=== PATIENT | male | born 1960 | race Caucasian/White ===

== ENCOUNTER 2017-07-18 15:17 | Emergency (ER) | payer BC, OTHER ==
[~2017-07-18] VITALS: Ht 180.3 cm; Wt 85.9 kg
[~2017-07-18 15:17] MED LIST: FLV1 PO; LSN20 PO; MULT-589 PO; NRV5 PO; PLV75 PO; THM100 PO
[2017-07-18 15:21] VITALS: TEMP 36.7; Ht 180.3 cm; Wt 85.9 kg
[2017-07-18] MEDS ORDERED: ASPIRIN 81 MG CHEW PO STA (15:35)
[2017-07-18 15:45] VITALS: O2SAT 95
--- NOTE | 2017-07-18 15:58 | EMERGENCY ROOM VISIT NOTE ---
History Report prepared by Elsa: Naida Mace Under the Supervision of: Dr. Urban Jones M.D. First contact with patient: 15:23 Chief Complaint: SHORTNESS OF BREATH Stated Complaint: FEELING SHORT OF BREATH History of Present Illness The patient is a 56 year old male who presents to the Emergency Room with complaints of an episode of shortness of breath with exertion beginning this morning. The patient states he normally walks a mile every morning. He reports when he went to walk this morning he had to stop because he was so short of breath. He states his shortness of breath resolved when he rested. The patient notes a clear productive cough but denies any chest pain. Presently, he denies any shortness of breath or chest pain. The patient has a history of bronchiospasm and states his symptoms today feel similar to when he had it. The patient has a history of a mini stroke two years ago, hypertension, and high cholesterol. He denies any recent travel. The patient is a former smoker. The patient is on a blood thinner. Source of History: patient Onset: this morning Position: other (generalized) Quality: other (shortness of breath) Timing: other (episode) Modifying Factors (Worsening): exertion Associated Symptoms: + SOB, No chest pain Review of Systems See HPI for pertinent positives and negatives. A total of ten systems were reviewed and were otherwise negative. Past Medical & Surgical Medical Problems: (1) CVA (cerebral vascular accident) (2) Hypertension (3) Hyponatremia Family History No pertinent family history Social History Smoking Status: Former Smoker Alcohol Use: heavy Drug Use: none Marital Status: Housing Status: lives with family Occupation Status: employed Current/Historical Medications Scheduled Amlodipine Besylate (Norvasc), 10 MG PO QAM Atorvastatin (Lipitor), 40 MG PO QPM Clopidogrel Bisulfate (Plavix), 75 MG PO QAM Folic Acid (Folvite), 1 MG PO QAM Lisinopril (Zestril), 40 MG PO QAM Metoprolol Succ (Toprol Xl) (Toprol-Xl), 50 MG PO QAM Thiamine Hcl (Vitamin B-1), 100 MG PO QAM Scheduled PRN Albuterol (Ventolin Hfa), 2 PUFFS INH QID PRN for Shortness of Breath Allergies Coded Allergies: No Known Allergies (Unverified , 02/01/16) Physical Exam Vital Signs Date Time Temp Pulse Resp B/P (MAP) Pulse Ox O2 Delivery O2 Flow Rate FiO2 07/18/17 19:59 78 20 163/101 98 Room Air 07/18/17 19:20 70 20 158/99 98 Room Air 07/18/17 18:14 73 15 154/86 95 Room Air 07/18/17 17:13 95 07/18/17 16:51 71 155/90 95 Room Air 07/18/17 15:52 74 07/18/17 15:45 95 Room Air 07/18/17 15:42 95 Room Air 07/18/17 15:21 36.7 87 20 175/88 95 Room Air Physical Exam Physical Exam GENERAL: He is oriented to person, place, and time. He appears well-developed and well-nourished. He does not appear distressed. ____ HENT: Exam performed. Head: Normocephalic and atraumatic. Right Ear: External ear normal. No mastoid tenderness. Left Ear: External ear normal. No mastoid tenderness. Mouth/Throat: The oropharynx is clear and moist. No trismus in the jaw. No dental abscesses or uvula swelling. No oropharyngeal exudate or tonsillar abscesses. ____ EYES: Conjunctivae and EOM are normal. Pupils are equal, round, and reactive to light. Right eye exhibits no discharge. Left eye exhibits no discharge. No scleral icterus. ____ NECK: Normal range of motion. Neck supple. No JVD present. No spinous process tenderness present. No carotid bruit present. No rigidity. No tracheal deviation and normal range of motion present. No Brudzinski's sign and no Kernig 's sign noted. ____ CV: Normal rate, regular rhythm, normal heart sounds and intact distal pulses. There is no peripheral edema. Palpable radial pulses bue. ____ PULM/CHEST: Effort normal and breath sounds normal. No respiratory distress. No stridor. He has no wheezes. He has scant rales at bilateral bases. Chest Wall: He exhibits no tenderness. ____ ABD: The abdomen is soft. Bowel sounds are normal. He has no distension. No mass is present. There is no tenderness. There is no rebound, no guarding, no Malloy's sign and no tenderness at McBurney's point. Rovsig negative MUSC/SKEL: Normal range of motion. There is no peripheral edema, tenderness or deformity. LYMPH: No cervical adenopathy. ____ NEURO: He is alert and oriented to person, place, and time. He has normal strength. No cranial nerve deficit or sensory deficit. Coordination and gait normal. GCS eye subscore is 4. GCS verbal subscore is 5. GCS motor subscore is 6. Cerebellar tests wnl. ____ SKIN: 1 + pitting bilateral lower extremity edema. Skin is warm and dry. He is not diaphoretic. ____ PSYCH: He has a normal mood and affect. His behavior is normal. Judgment and thought content normal. ____ Medical Decision & Procedures ER Provider Diagnostic Interpretation: Radiology results as stated below per my review and radiologist interpretation: CHEST 2 VIEWS ROUTINE FINDINGS: The cardiac and mediastinal contours are normal. There is no evidence of focal pulmonary consolidation. There is no evidence of failure. No pleural effusions are visualized.[ IMPRESSION: No active disease in the chest. Electronically signed by: Geraldo Ball M.D. Laboratory Results 07/18/17 16:20 Red Blood Count 4.97, Mean Corpuscular Volume 88.9, Mean Corpuscular Hemoglobin 31.0, Mean Corpuscular Hemoglobin Concent 34.8, Mean Platelet Volume 10.4, Neutrophils (%) (Auto) 78.6, Lymphocytes (%) (Auto) 13.2, Monocytes (%) (Auto) 6.8, Eosinophils (%) (Auto) 0.6, Basophils (%) (Auto) 0.4, Neutrophils # (Auto) 10.35, Lymphocytes # (Auto) 1.74, Monocytes # (Auto) 0.90, Eosinophils # (Auto) 0.08, Basophils # (Auto) 0.05 07/18/17 16:20 Test 07/18/17 16:20 07/18/17 16:50 07/18/17 19:23 White Blood Count 13.17 K/uL (4.8-10.8) Red Blood Count 4.97 M/uL (4.7-6.1) Hemoglobin 15.4 g/dL (14.0-18.0) Hematocrit 44.2 % (42-52) Mean Corpuscular Volume 88.9 fL (80-100) Mean Corpuscular Hemoglobin 31.0 pg (25-34) Mean Corpuscular Hemoglobin Concent 34.8 g/dl (32-36) Platelet Count 263 K/uL (130-400) Mean Platelet Volume 10.4 fL (7.4-10.4) Neutrophils (%) (Auto) 78.6 % Lymphocytes (%) (Auto) 13.2 % Monocytes (%) (Auto) 6.8 % Eosinophils (%) (Auto) 0.6 % Basophils (%) (Auto) 0.4 % Neutrophils # (Auto) 10.35 K/uL (1.4-6.5) Lymphocytes # (Auto) 1.74 K/uL (1.2-3.4) Monocytes # (Auto) 0.90 K/uL (0.11-0.59) Eosinophils # (Auto) 0.08 K/uL (0-0.5) Basophils # (Auto) 0.05 K/uL (0-0.2) RDW Standard Deviation 45.1 fL (36.4-46.3) RDW Coefficient of Variation 13.9 % (11.5-14.5) Immature Granulocyte % (Auto) 0.4 % Immature Granulocyte # (Auto) 0.05 K/uL (0.00-0.02) Prothrombin Time 10.0 SECONDS (9.0-12.0) Prothromb Time International Ratio 1.0 (0.9-1.1) Activated Partial Thromboplast Time 28.5 SECONDS (21.0-31.0) Partial Thromboplastin Ratio 1.1 D-Dimer 340 ug/L FEU (0-500) Anion Gap 6.0 mmol/L (3-11) Est Creatinine Clear Calc Drug Dose 76.8 ml/min Estimated GFR () 81.4 Estimated GFR (Non- 70.3 BUN/Creatinine Ratio 13.1 (10-20) Calcium Level 9.0 mg/dl (8.5-10.1) Troponin I < 0.015 ng/ml (0-0.045) Pro-B-Type Natriuretic Peptide 175 pg/ml (0-900) Influenza Type A Antigen Neg for Influ A (NEG) Influenza Type B Antigen Neg for Influ B (NEG) Bedside Troponin I < 0.030 ng/ml (0-0.045) Laboratory results reviewed by me Medications Administered Medications (Trade) Dose Ordered Sig/Yolanda Route Start Time Stop Time Status Last Admin Dose Admin Aspirin (Aspirin Chew) 324 mg NOW STAT PO 07/18/17 15:35 07/18/17 15:37 DC 07/18/17 15:46 324 MG ECG Per My Interpretation Indication: SOB/dyspnea Rate (beats per minute): 76 Rhythm: normal sinus Findings: other (VT, QRS, QTC within normal limits, no ST elevation or ST depression ) ED Course 1530: The patient was evaluated in room A10. A complete history and physical exam was performed. EMR review showed the patient had a negative stress echo in January of 2016. 1535: Ordered Aspirin 324 mg PO. 1725: Vitals stable, EKG, imaging and labs within normal including included negative troponin, D-dimer, and pro BMP. The patient was ambulated around the ED and his O2 saturation never went below 95 percent. He denies any shortness of breath or chest pain when ambulating. Repeat physical exam shows lungs clear to auscultation, cardio regular rate and rhythm S1-S2 auscultated palpable radial pulses bilateral upper extremities. the patient was offered observation in hospital for rule out ACS and get a possible stress test, which the patient and at bedside decline. We will repeat troponin and if positive the patient will be admitted and if negative will be discharged. Patient and are agreeable to this plan. DISCHARGE - Plan of care discussed with patient and questions answered. The patient was given both verbal and printed discharge instructions. The patient verbalized understanding and ability to comply. The patient is to seek outpatient follow up as noted in the discharge instructions. The patient verbalized understanding and ability to comply. The patient is discharged in stable condition. The patient was instructed to return for worsening symptoms. Medical Decision Vitals stable, EKG, imaging and labs within normal including included negative troponin x2, D-dimer, and pro BMP. The patient was ambulated around the ED and his O2 saturation never went below 95 percent. He denies any shortness of breath or chest pain when ambulating. Repeat physical exam shows lungs clear to auscultation, cardio regular rate and rhythm S1-S2 auscultated palpable radial pulses bilateral upper extremities. the patient was offered observation in hospital for rule out ACS and get a possible stress test, which the patient and at bedside decline. We will repeat troponin and if positive the patient will be admitted and if negative will be discharged. Patient and are agreeable to this plan. DISCHARGE - Plan of care discussed with patient and questions answered. The patient was given both verbal and printed discharge instructions. The patient verbalized understanding and ability to comply. The patient is to seek outpatient follow up as noted in the discharge instructions. The patient verbalized understanding and ability to comply. The patient is discharged in stable condition. The patient was instructed to return for worsening symptoms. Medication Reconcilliation Current Medication List: was personally reviewed by me Blood Pressure Screening Patient's blood pressure: Elevated blood pressure Blood pressure disposition: Elevated BP felt to be situational Impression Primary Impression: Dyspnea Scribe Attestation The scribe's documentation has been prepared under my direction and personally reviewed by me in its entirety. I confirm that the note above accurately reflects all work, treatment, procedures, and medical decision making performed by me. The chart was completed utilizing [employer] Speech voice recognition software. Grammatical errors, random word insertions, pronoun errors, and incomplete sentences are an occasional consequence of this system due to software limitations, ambient noise, and hardware issues. Any formal questions or concerns about the content, text, or information contained within the body of this dictation should be directly addressed to the physician for clarification. Departure Information Dispostion Home / Self-Care Prescriptions Albuterol (Ventolin Hfa) 60 Puffs/5400 Mcg Aers 2 PUFFS INH QID Y for Shortness of Breath for 5 Days, #1 INHALER Prov: Urban Jones M.D. 07/18/17 Referrals Frank Newberry D.O. (PCP) Forms HOME CARE DOCUMENTATION FORM, IMPORTANT VISIT INFORMATION Patient Instructions My [facility] Problem Qualifiers Primary Impression: Dyspnea Dyspnea type: dyspnea on exertion Qualified Codes: R06.09 - Other forms of dyspnea
[2017-07-18 16:31] LABS: BASO % 0.4 %; BASO ABS # 0.05 K/uL (0-0.2); EOS % 0.6 %; EOS ABS # 0.08 K/uL (0-0.5); HEMATOCRIT 44.2 % (42-52); HEMOGLOBIN 15.4 g/dL (14.0-18.0); IG# 0.05 K/uL (0.00-0.02); LYMPH % 13.2 %; LYMPH ABS # 1.74 K/uL (1.2-3.4); MEAN CELL VOLUME 88.9 fL (80-100); MEAN CORPUSCULAR HGB CONC 34.8 g/dl (32-36); MEAN PLATELET VOLUME 10.4 fL (7.4-10.4); MONO % 6.8 %; NEUT % 78.6 %; NEUT ABS # 10.35 K/uL (1.4-6.5); PLATELET COUNT 263 K/uL (130-400); RED CELL DISTRIBUTION WIDTH CV 13.9 % (11.5-14.5); RED CELL DISTRIBUTION WIDTH SD 45.1 fL (36.4-46.3); WHITE BLOOD COUNT 13.17 K/uL (4.8-10.8)
[2017-07-18] MEDS ORDERED: LISI40TA PO (16:47)
[2017-07-18] MEDS ORDERED: THIA100T11 PO (16:47)
[2017-07-18] MEDS ORDERED: AMLO5TAB2 PO (16:47)
[2017-07-18] MEDS ORDERED: CLOP1TAB5 PO (16:47)
[2017-07-18] MEDS ORDERED: METO50TA8 PO (16:47)
[2017-07-18] MEDS ORDERED: ATOR-24 PO (16:47)
[2017-07-18] MEDS ORDERED: FOLI1TAB8 PO (16:47)
--- NOTE | 2017-07-18 16:50 | DIAGNOSTIC IMAGING REPORT ---
CHEST 2 VIEWS ROUTINE CLINICAL HISTORY: Atypical chest pain. Shortness of breath. COMPARISON STUDY: 01/30/2016 FINDINGS: The cardiac and mediastinal contours are normal. There is no evidence of focal pulmonary consolidation. There is no evidence of failure. No pleural effusions are visualized.[ IMPRESSION: No active disease in the chest. Electronically signed by: Geraldo Ball M.D. 07/18/2017 4:49 PM Dictated Date/Time: 07/18/2017 4:48 PM
[2017-07-18 16:51] LABS: PTT PATIENT 28.5 SECONDS (21.0-31.0)
[2017-07-18 16:52] LABS: BLOOD UREA NITROGEN 15 mg/dl (7-18); GLUCOSE 106 mg/dl (70-99)
[2017-07-18 16:53] LABS: CARBON DIOXIDE 26 mmol/L (21-32); CREATININE 1.17 mg/dl (0.60-1.40); POTASSIUM 3.8 mmol/L (3.5-5.1); SODIUM 138 mmol/L (136-145)
[2017-07-18 17:24] LABS: INFLUENZA B ANTIGEN Neg for Influ B (NEG)
[2017-07-18] MEDS ORDERED: PRVHFAIN INH (18:04)
--- NOTE | 2017-07-18 19:51 | EMERGENCY ROOM VISIT NOTE ---
ED Visit Note Patient was followed up at the request of my attending physician, Dr. Jones. Please see Dr. Jones's dictation for full HPI and emergency department course prior to my care. In short, the patient is here for some shortness of breath symptoms. He has had extensive workup here in the ER including negative troponin, negative d- dimer, normal x-ray, and essentially noncontributory blood work. On my evaluation the patient continues to be well and quite comfortable. A second troponin was performed and was negative. The patient still prefers discharge home, and this seems reasonable. The patient was asked to follow with his primary care physician and was otherwise invited back to the ER with any new, worsening, or concerning symptoms. Problem List Medical Problems: (1) CVA (cerebral vascular accident) Status: Resolved (2) Hypertension Status: Chronic Current/Historical Medications Scheduled Amlodipine Besylate (Norvasc), 10 MG PO QAM Atorvastatin (Lipitor), 40 MG PO QPM Clopidogrel Bisulfate (Plavix), 75 MG PO QAM Folic Acid (Folvite), 1 MG PO QAM Lisinopril (Zestril), 40 MG PO QAM Metoprolol Succ (Toprol Xl) (Toprol-Xl), 50 MG PO QAM Thiamine Hcl (Vitamin B-1), 100 MG PO QAM Scheduled PRN Albuterol (Ventolin Hfa), 2 PUFFS INH QID PRN for Shortness of Breath Allergies Coded Allergies: No Known Allergies (Unverified , 02/01/16) Vital Signs Date Time Temp Pulse Resp B/P (MAP) Pulse Ox O2 Delivery O2 Flow Rate FiO2 07/18/17 18:14 73 15 154/86 95 Room Air 07/18/17 17:13 95 07/18/17 16:51 71 155/90 95 Room Air 07/18/17 15:52 74 07/18/17 15:45 95 Room Air 07/18/17 15:42 95 Room Air 07/18/17 15:21 36.7 87 20 175/88 95 Room Air Laboratory Results 07/18/17 16:20 Red Blood Count 4.97, Mean Corpuscular Volume 88.9, Mean Corpuscular Hemoglobin 31.0, Mean Corpuscular Hemoglobin Concent 34.8, Mean Platelet Volume 10.4, Neutrophils (%) (Auto) 78.6, Lymphocytes (%) (Auto) 13.2, Monocytes (%) (Auto) 6.8, Eosinophils (%) (Auto) 0.6, Basophils (%) (Auto) 0.4, Neutrophils # (Auto) 10.35, Lymphocytes # (Auto) 1.74, Monocytes # (Auto) 0.90, Eosinophils # (Auto) 0.08, Basophils # (Auto) 0.05 07/18/17 16:20 Test 07/18/17 16:20 07/18/17 16:50 07/18/17 19:20 07/18/17 19:23 White Blood Count 13.17 K/uL (4.8-10.8) Red Blood Count 4.97 M/uL (4.7-6.1) Hemoglobin 15.4 g/dL (14.0-18.0) Hematocrit 44.2 % (42-52) Mean Corpuscular Volume 88.9 fL (80-100) Mean Corpuscular Hemoglobin 31.0 pg (25-34) Mean Corpuscular Hemoglobin Concent 34.8 g/dl (32-36) Platelet Count 263 K/uL (130-400) Mean Platelet Volume 10.4 fL (7.4-10.4) Neutrophils (%) (Auto) 78.6 % Lymphocytes (%) (Auto) 13.2 % Monocytes (%) (Auto) 6.8 % Eosinophils (%) (Auto) 0.6 % Basophils (%) (Auto) 0.4 % Neutrophils # (Auto) 10.35 K/uL (1.4-6.5) Lymphocytes # (Auto) 1.74 K/uL (1.2-3.4) Monocytes # (Auto) 0.90 K/uL (0.11-0.59) Eosinophils # (Auto) 0.08 K/uL (0-0.5) Basophils # (Auto) 0.05 K/uL (0-0.2) RDW Standard Deviation 45.1 fL (36.4-46.3) RDW Coefficient of Variation 13.9 % (11.5-14.5) Immature Granulocyte % (Auto) 0.4 % Immature Granulocyte # (Auto) 0.05 K/uL (0.00-0.02) Prothrombin Time 10.0 SECONDS (9.0-12.0) Prothromb Time International Ratio 1.0 (0.9-1.1) Activated Partial Thromboplast Time 28.5 SECONDS (21.0-31.0) Partial Thromboplastin Ratio 1.1 D-Dimer 340 ug/L FEU (0-500) Anion Gap 6.0 mmol/L (3-11) Est Creatinine Clear Calc Drug Dose 76.8 ml/min Estimated GFR () 81.4 Estimated GFR (Non- 70.3 BUN/Creatinine Ratio 13.1 (10-20) Calcium Level 9.0 mg/dl (8.5-10.1) Pro-B-Type Natriuretic Peptide 175 pg/ml (0-900) Influenza Type A Antigen Neg for Influ A (NEG) Influenza Type B Antigen Neg for Influ B (NEG) Bedside Troponin I < 0.030 ng/ml (0-0.045) Medications Administered Medications (Trade) Dose Ordered Sig/Yolanda Route Start Time Stop Time Status Last Admin Dose Admin Aspirin (Aspirin Chew) 324 mg NOW STAT PO 07/18/17 15:35 07/18/17 15:37 DC 07/18/17 15:46 324 MG Departure Information Impression Primary Impression: Dyspnea Dispostion Home / Self-Care Prescriptions Albuterol (Ventolin Hfa) 60 Puffs/5400 Mcg Aers 2 PUFFS INH QID Y for Shortness of Breath for 5 Days, #1 INHALER Prov: Urban Jones M.D. 07/18/17 Referrals Frank Newberry D.O. (PCP) Follow-up in 3 days. Forms HOME CARE DOCUMENTATION FORM, IMPORTANT VISIT INFORMATION Patient Instructions My [facility], ED Dyspnea Shortness of Breath Additional Instructions Return to the emergency department if you develop chest pain, fever greater than 100.4, returning shortness of breath, lose consciousness, or your symptoms worsen.
[2017-07-18 19:59] VITALS: BP 163/101; PULSE 78; O2SAT 98
== END 2017-07-18 20:11 | disposition home or self-care (01) ==
LOC: C.EDB 15:18 → C.EDA 20:11
DX: R06.09 Other forms of dyspnea (principal); R60.9 Edema, unspecified; I10 Essential (primary) hypertension; E78.5 Hyperlipidemia, unspecified; E87.1 Hypo-osmolality and hyponatremia; Z86.73 Personal history of transient ischemic attack (TIA), and cerebral infarction without residual deficits; Z79.01 Long term (current) use of anticoagulants; Z87.891 Personal history of nicotine dependence